=== PATIENT | female | born 1960 | race African-American/Black ===

== ENCOUNTER 2019-04-06 10:34 | Emergency (ER) | payer MEDICAID ==
[~2019-04-06] VITALS: Ht 167.6 cm; Wt 123.4 kg
[2019-04-06 10:38] VITALS: Ht 167.6 cm; Wt 123.4 kg
[2019-04-06 13:04] VITALS: BP 138/74
== END 2019-04-06 13:04 | disposition home or self-care (01) ==
LOC: ED 10:34
DX: R11.2 Nausea with vomiting, unspecified (principal); I10 Essential (primary) hypertension; Z88.0 Allergy status to penicillin
CPT/HCPCS: Q0162